=== PATIENT | male | born 2005 | race African-American/Black ===

== ENCOUNTER 2024-01-06 19:48 | Inpatient (IN) ==
--- OUTSIDE RECORDS SUMMARY | 2024-01-06 19:54 | External Medical Summary | Continuity of Care Document ---
Author Name Unknown Organization [place] [id number] Address [address] [place] [address] [phone] Care Team Providers Care Discharge Planner Name Role Phone Bradley Hunt Primary Care Physician [phone] Encounter [facility] [id number] Date(s): 09/14/23 - 09/14/[address] [facility] 0 [place] [id number] [facility] Medicine [address] [place] [id number] Encounter Diagnosis Acute URI(Discharge Diagnosis) - 09/14/23 Discharge Disposition: Home or Self Care Attending Physician: MD Bay Jesse Allergies, Adverse Reactions, Alerts No Known Medication Allergies Assessment and Plan Extracted from: Title:PSSM - URI Author:MD Flip, Edel Perez ate:09/14/23 1.Acute URI - Given duration of symptoms and failure to respond to allergy regimen will trial azithromycin 5 day course (#6 tablets handed to patient) -For symptomatic mucous clearance, mucinex 12hr provided, 1 tab q12hrs prn mucous, #10 provided f/u PRN. Time: 20mins 5 - pre-visit chart review 15 - visit, inclusive of history, exam, and discussion of assessment/plan 0 - post-visit documentation/orders/coordination of care Medications benzoyl peroxide 10% topical cream Start: 01/29/23 6:56:00 PM EDT, 1 appl, topical, bid, Disp# 30 g, Refills: 3, Pharmacy: [facility] Start Date: 01/29/23 Stop Date: 05/29/23 Status: Ordered Mental Status 09/14/23 Barriers to Learning one year None evide nt Mandatory Health Literacy Documentation Yes Health Literacy Communication Barriers N ever Primary Language Kittitian Problem List Condition Confirmation Course Effective Dates Status Health St atus Informant Left ankle sprain Confirmed Active Diagnosis Diagnosis Type Effective Dates Health Status Clini akbar Service Informant Acute URI Discharge Diagnosis 09/14/23 Non-Specified Vital Signs Most recent to oldest [Reference Range]: 1 Height 177 cm (09/14/23 3:29 PM) Patient Weight 88.6 kg (09/14/23 3:29 PM) Body Mass Index 28.28 kg/m2 (09/14/23 3:29 PM) Temperature [36.5-37.9 DegC] 37.0 DegC (09/14/23 3:29 PM) Heart Rate 72 bpm (09/14/23 3:29 PM) Blood Pressure 104/66mmHg (09/14/23 3:29 PM) Weight Z-Score 1.34 1 (09/14/23 3:29 PM) Weight Percentile 91.00 2 (09/14/23 3:29 PM) Height/Length Z-Score 0.04 3 (09/14/23 3:29 PM) Height New Percentile 51.73 4 (09/14/23 3:29 PM) 1Result Comment: ^~:!ZScore Source -[facility] 2Result Comment: ^~:!Percentile Source -[facility] 3Result Comment: ^~:!ZScore Source -[facility] 4Result Comment: ^~:!Percentile Source -[facility] Social History Social History Type Response Smoking Status Never smoked cigaret juan Sex Male Ortho Outpt Note * MD Flip, Edel E: PERFORM Event Display: Ortho Outpt Note Authored Date: [id number] Chief Complaint cold symptoms for 2 weeks - cough, chest congestion. denies fever / chills. 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 He denies any fevers/chills or other infectious symptoms. He notes it's felt like he's got a lot of mucous in his chest. Worsened since coming back to [place]. Trainers had tried allergy medications without relief. Feels a bit wheezy in his chest. Workouts feel harder and less able to getair. Tried loratidine but no flonase/nasal sprays. Physical Exam Vitals & Measurements T:37.0C HR:72(Monitored) BP:104/66 SpO2:98% HT:177cm WT:88.600kg(Dosing) WT:88.6kg BMI:28.28 GENERAL APPEARANCE: The patient is alert, oriented and in no acute distress. VITALS: As above. HEENT: Head is normocephalic/atraumatic. OP clear with mild postnasal drips. Nares swollen/erythematous. CARDIOVASCULAR: +2 radial pulses. LUNGS: Respirations even and unlabored. Coarse breath sounds without wheezing/crackles EXTREMITIES: No cyanosis, clubbing or edema. NEUROLOGICAL: Grossly non-focal exam. SKIN: Warm and dry without any rash. Assessment/Plan 1.Acute URI - Given duration of symptoms and failure to respond to allergy regimen will trial azithromycin 5 day course (#6 tablets handed to patient) -For symptomatic mucous clearance, mucinex 12hr provided, 1 tab q12hrs prn mucous, #10 provided f/u PRN. Time: 20mins 5 - pre-visit chart review 15 - visit, inclusive of history, exam, and discussion of assessment/plan 0 - post-visit documentation/orders/coordination of care Problem List/Past Medical History Ongoing Left ankle sprain Medications benzoyl peroxide topical(benzoyl peroxide 10% topical cream), 1 appl, topical, bid, 3 refills Allergies No Known Medication Allergies Social History Smoking Status Never smoked cigarettes Recommendations Health Maintenance Pending(in the next year) OverDue Adult Influenza Vaccine due10/14/22and every 1year Due Adult COVID-19 Vaccination due09/14/23Unknown Frequency Adult Social Determinants of Health Screening due09/14/23Unknown Frequency Adult Tdap/Td Vaccine due09/14/23Unknown Frequency Hepatitis C Screening due09/14/23One-time only Satisfied(in the past 1 year) Satisfied Body Mass Index on09/14/23.Satisfied by MATT Oliva Cassidy Electronic Signature on File Electronically Reviewed/Signed by: Edel Castelan MD Author Signature Dt/Tm:09/14/2023 03:46 PM Department of Family Medicine [facility] Patient Care team information Care Team Personnel Name: MD Gilbert, Bradley Torres Position: Physician - Sports Medicine [place] Member Role: Primary Care Provider Address: Address: [address] [place] [address]
--- OUTSIDE RECORDS SUMMARY | 2024-01-06 19:54 | External Medical Summary | Continuity of Care Document ---
Author Name Unknown Organization [place] [id number] Address [address] [place] [address] [phone] Care Team Providers Care Garage Door Service Technician Name Role Phone Bradley Hunt Primary Care Physician [phone] [id number]s): 11/07/23 - 11/07/23 [facility] [address] [id number] [facility] Medicine [address] [place] [id number] Encounter Diagnosis Wrist pain(Discharge Diagnosis) - 11/07/23 Pain in wrist(Discharge Diagnosis) - 11/07/23 Discharge Disposition: Home or Self Care Attending Physician: MD Maldonado Wayne J Referring Physician: MD Maldonado Wayne J Allergies, Adverse Reactions, Alerts No Known Medication Allergies Assessment and Plan Extracted from: Title:Clinical Document Author:MD Maldonado Wayne J Date:11/07/23 OUTPATIENT NOTE Name: ELISA KAUFMAN Patient Number:1 [id number] : 2005 Date of Service: 11/07/2023 4 view x-ray right wrist negative for fracture or instability...ordered and interpreted by me . Medications benzoyl peroxide 10% topical cream Start: 01/29/23 6:56:00 PM EDT, 1 appl, topical, bid, Disp# 30 g, Refills: 3, Pharmacy: [facility] Start Date: 01/29/23 Stop Date: 05/29/23 Status: Ordered Problem List Condition Confirmation Course Effective Dates Status Health St atus Informant Left ankle sprain Confirmed Active Diagnosis Diagnosis Type Effective Dates Health Status Cl inical Service Informant Wrist pain Discharge Diagnosis 11/07/23 Non-Specified Pain in wrist Discharge Diagnosis 11/07/23 Non-Specified Social History Social History Type Response Smoking Status Never smoked cigaret juan Sex Male Sex Representation Male (finding) Outpatient Note * MD Erica, Deepak Olsen: PERFORM Event Display: .Outpt Note Authored Date: [id number] OUTPATIENT NOTE Name: ELISA KAUFMAN Patient Number:1 [id number] : 2005 Date of Service: 11/07/2023 4 view x-ray right wrist negative for fracture or instability...ordered and interpreted by me . Electronic Signature on File Electronically Reviewed/Signed by: Deepak Maldonado MD Author Signature Dt/Tm:11/07/2023 11:51 AM Station Master for Clinical Affairs, [facility] Melissa Professor in Orthopaedics Paleontological Helper, [facility] [place] Patient Care team information Care Team Personnel Name: MD Gilbert, Bradley Torres Position: Physician - Sports Medicine [place] Member Role: Primary Care Provider Address: [address] [place] [address]
--- OUTSIDE RECORDS SUMMARY | 2024-01-06 19:54 | External Medical Summary | Continuity of Care Document ---
Author Name Unknown Organization [place] [id number] Address [address] [place] [address] [id number] Care Team Providers Care Mortgage Loan Funder Name Role Phone Bradley Hunt Primary Care Physician [phone] [id number] Date(s): 11/10/23 - 11/10/[address] [facility] [address] [place] [id number] [facility] Medicine [address] [place] [id number] Encounter Diagnosis Pain in right wrist(Discharge Diagnosis) - 11/10/23 Discharge Disposition: Home or Self Care Attending Physician: MD Maldonado Wayne J Referring Physician: MD Maldonado Wayne J Allergies, Adverse Reactions, Alerts No Known Medication Allergies Assessment and Plan Extracted from: Title:Clinical Document Author:MD Maldonado Wayne J Date:11/10/23 OUTPATIENT NOTE Name: ELISA KAUFMAN Patient Number:1 [id number] : 2005 Date of Service: 11/10/2023 Injured his right wrist doing a clean Olympic lift. This happened several days ago. He had x-rays done about 48 hours ago. They do not reveal any significant lesion. He notes he still has some wrist pain and stiffness. He notes no overt swelling. Denies any previous problems. Denies numbness or tingling. Examination today reveals median radian and ulnar nerves intact symmetric bilaterally to sensation and motor function. Intrinsics work well strength is good. Has some discomfort in the CMC joint and in the radial carpal joint with forced dorsiflexion not so much with plantarflexion. Boateng's test is not remarkably positive. Midcarpal stability is symmetric. EPL FPL intact EDC FTC intact ECRB CR L intact has some tenderness over the dorsal carpus. Has no major discomfort with radial ulnar deviation but feels little stiff. Pronation supination is full. There is no TFCC impingement. FCU is intact and nontender ECU is intact and nontender. X-rays multiple views ordered interpreted by me reveal no obvious fracture to the scaphoid no obvious scapholunate widening with PA paving block cutter view. Assessment right wrist impingement potential posttraumatic ganglion. No obvious signs of scaphoid fracture by x-ray or scapholunate instability. Advised that this would may need to be santa-rayed as these may be delayed in assessment by imaging. Do not see any emergent need for MRI scan at this point. He has no significant swelling. He has excellent range of motion. He is this is little discomfort and stiffness at the extremes. At this point I will place on diclofenac 75 mg p.o. be ID and use a wrist geraldine type splint for protection. Repeat x-ray if needed in the future. Medications benzoyl peroxide 10% topical cream Start: 01/29/23 6:56:00 PM EDT, 1 appl, topical, bid, Disp# 30 g, Refills: 3, Pharmacy: [facility] Start Date: 01/29/23 Stop Date: 05/29/23 Status: Ordered Mental Status 11/10/23 Barriers to Learning one year None evide nt Mandatory Health Literacy Documentation Yes Health Literacy Communication Barriers N ever Primary Language North Korean Problem List Condition Confirmation Course Effective Dates Status Health St atus Informant Wrist pain Confirmed Active Left ankle sprain Confirmed Active Diagnosis Diagnosis Type Effective Dates Health Status Cl inical Service Informant Pain in right wrist Discharge Diagnosis 11/10/23 Social History Social History Type Response Smoking Status Never smoked cigaret juan Sex Male Sex Representation Male (finding) Outpatient Note * MD Erica, Deepak Olsen: PERFORM Event Display: .Outpt Note Authored Date: [id number] OUTPATIENT NOTE Name: ELISA KAUFMAN Patient Number:1 [id number] : 2005 Date of Service: 11/10/2023 Injured his right wrist doing a clean Olympic lift. This happened several days ago. He had x-rays done about 48 hours ago. They do not reveal any significant lesion. He notes he still has some wrist pain and stiffness. He notes no overt swelling. Denies any previous problems. Denies numbness or tingling. Examination today reveals median radian and ulnar nerves intact symmetric bilaterally to sensation and motor function. Intrinsics work well strength is good. Has some discomfort in the CMC joint and in the radial carpal joint with forced dorsiflexion not somuch with plantarflexion. Boateng's test is not remarkably positive. Midcarpal stability is symmetric. EPL FPL intact EDC FTC intact ECRB CR L intact has some tenderness over the dorsal carpus. Has nomajor discomfort with radial ulnar deviation but feels little stiff. Pronation supination is full. There is no TFCC impingement. FCU is intact and nontender ECU is intact and nontender. X-rays multiple views ordered interpreted by me reveal no obvious fracture to the scaphoid no obvious scapholunate widening with PA paving block cutter view. Assessment right wrist impingement potential posttraumatic ganglion. No obvious signs of scaphoid fracture by x-ray or scapholunate instability. Advised that this would may need to be santa-rayed as these may be delayed in assessment by imaging. Do not see any emergent need for MRI scan at this point. He has no significant swelling. He has excellent range of motion. He is this is little discomfort and stiffness at the extremes. At this point I will place on diclofenac 75 mg p.o. be ID and use a wrist geraldine type splint for protection. Repeat x-ray if needed in the future. Electronic Signature on File Electronically Reviewed/Signed by: Deepak Maldonado MD Author Signature Dt/Tm:11/10/2023 03:38 PM Hospitality Team Member for Clinical Affairs, [facility] Melissa Professor in Orthopaedics Cream Buyer, [facility] Sports Medicine [place] Patient Care team information Care Team Personnel Name: MD Giblert, Bradley Torres Position: Physician - Sports Medicine [place] Member Role: Primary Care Provider Address: [address] [place] [address] [place]
--- NOTE | 2024-01-06 20:02 | Emergency Department Note ---
Impression & Plan Bilateral ankle fractures, Leukocytosis ED Provider Note NAME: ELISA KAUFMAN AGE: 18 SEX: M : 2005 ARRIVES VIA: Walk-In INFORMANT: Patient ED PROVIDER(S): Liam Duque DO CHIEF COMPLAINT: b/l leg pain HPI: Patient is a 18-year-old male who presents to the ER for bilateral leg pain. He was playing the [employer] football game and was hit from the front and the back of the legs and started having severe pain in the bilateral legs. Patient admits to severe pain in bilateral shins. Denies any tingling, numbness, or weakness. Additional history provided by Dr. Paige who notes that he had x-rays performed already and believes that he has fractures of both ankles. He recommended bilateral tib-fib and ankle x-rays in combination with CT of the lower extremities ADDITIONAL HISTORY OBTAINED: Per HPI Chronic Medical/Social Conditions Affecting Care: Per HPI PAST MEDICAL HISTORY:See Below PAST SURGICAL HISTORY:See Below FAMILY HISTORY:See Below SOCIAL HISTORY:See Below HOME MEDICATIONS:See Below ALLERGIES:See Below VITALS:See Below PHYSICAL EXAMINATION: GENERAL: Sitting up in bed, alert, well appearing, well nourished, no distress, non-toxic EYE EXAM: normal conjunctiva. OROPHARYNX: mucous membranes are moist NECK: supple, no nuchal rigidity, no adenopathy, non-tender LUNGS: Clear to auscultation. Normal chest wall mechanics HEART: no murmurs, S1 normal and S2 normal ABDOMEN: abdomen soft, non-tender, normo-active bowel sounds, no masses, no rebound or guarding. UPPER EXTREMITIES: upper extremities are grossly normal. LOWER EXTREMITIES: Splints on bilateral lower extremities. DPs 2 out of 4. Gross station intact. Able to wiggle toes. No pain in the bilateral knees femurs or hips. NEURO EXAM: Normal sensorium, cranial nerves II-XII grossly intact, normal speech, no gross weakness of arms, no gross weakness of legs. 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 IV was established and blood work was obtained. He was referred in by [facility] as described above. He was already splinted. Labs show mild leukocytosis of 12,000. No significant anemia. BMP with creatinine 1.5. LFTs bilirubin was unremarkable. X-rays show bilateral distal fibular fractures. Patient was admitted to [facility] orthopedics for the OR in the morning. Patient was given IV morphine while in the ER. Consults/Care Managements Discussions: Per [facility] Triage Nursing notes reviewed. Limited review of prior medical records performed Vital Signs: reviewed and remarkable for HTN Differential diagnosis: Fracture, subluxation, dislocation, contusion, ligamentous injury, neurovascular, compartment syndrome, rhabdomyolysis, as well as other pathologies. ER treatment provided: See below Diagnostics interpreted by me include EKG and cardiac monitoring as listed below: -Cardiac Monitoring: An order was placed for continuous cardiac monitoring. The monitor shows a rate of 80 with sinus rhythm. -Laboratory studies:Interpreted by me as stated above in MDM and shown below. Imaging studies: Xrays: As interpreted by me: X-ray of the right ankle shows a distal fibular fracture X-ray of the left ankle shows a distal fibular fracture CTs show: CTs of the ankle support bilateral fibular fractures and were obtained per request of [facility] Ortho Procedures:none Critical Care: None Past Med/Surg History Problem List (Updated 01/06/24 @ 23:12 by Liam Duque DO) Leukocytosis (Acute) Bilateral ankle fractures (Acute) Social History Smoking Status: Never smoker Feels Safe at Home: Yes Allergies Allergies Allergy/AdvReac Type Severity Reaction Status Date / Time No Known Allergies Allergy Unverified 01/06/24 21:34 Home Meds Home Medications Medication Instructions Recorded Confirmed No Known Home Medications 01/06/24 01/06/24 Results & Data (ED) Vital Signs Vital Signs - 24 hr 01/06/24 19:50 01/06/24 20:20 01/06/24 20:57 Temperature 36.5 C Temperature Source Temporal Artery Scan Pulse Rate 82 Pulse Rate [Finger] 75 Respiratory Rate 20 16 Respiratory Effort / Characteristics Non-Labored Spontaneous Respiratory Depth Normal Normal Respiratory Pattern Regular Blood Pressure 153/126 H Blood Pressure [Right Arm] 126/70 Blood Pressure Mean 135 Blood Pressure Mean [Right Arm] 88 Blood Pressure Position Sitting Blood Pressure Position [Right Arm] Semi-fowlers Pulse Oximetry 99 97 98 Oxygen Delivery Method Room Air Room Air Room Air Sepsis Recent Fever Within 48 Hours No Sepsis New/Unexplained Change in Mental Status No Sepsis Action Taken by Nursing No Action Required Laboratory Data 01/06/24 20:20 01/06/24 20:20 Lab Results 01/06/24 Range/Units 20:20 WBC 12.04 H (4.8-10.8) K/ul RBC 5.04 (4.70-6.10) M/uL Hgb 15.5 (14.0-18.0) g/dl Hct 44.3 (42.0-52.0) % MCV 87.9 (80.0-100.0) fL MCH 30.8 (25.0-34.0) pg MCHC 35.0 (32.0-36.0) g/dL RDW Std Deviation 39.3 (36.4-46.3) fL RDW Coeff of Mati 12.2 (11.5-14.5) % Plt Count 283 (130-400) K/uL MPV 9.9 (9.4-12.4) fL Immature Gran % (Auto) 0.3 % Neut % (Auto) 80.0 % Lymph % (Auto) 12.2 % [place] % (Auto) 7.2 % Eos % (Auto) 0.0 % Baso % (Auto) 0.3 % Neut # (Auto) 9.62 H (1.40-6.50) K/uL Lymph # (Auto) 1.47 (1.20-3.40) K/uL [place] # (Auto) 0.87 H (0.11-0.59) K/uL Eos # (Auto) 0.00 (0.00-0.50) K/uL Baso # (Auto) 0.04 (0.00-0.20) K/uL Immature Gran # (Auto) 0.04 (0.01-0.20) K/uL Sodium 139 (136-145) mmol/L Potassium 4.0 (3.5-5.1) mmol/L Chloride 102 (98-107) mmol/L Carbon Dioxide 28 (21-32) mmol/L Anion Gap 9 (3-11) BUN 16 (6-23) mg/dl Creatinine 1.51 H (0.6-1.4) mg/dl Est Cr Clr Drug Dosing 91.3 ml/min Est GFR ( Amer) 76.5 ml/min Est GFR (Non-Af Amer) 66.0 ml/min BUN/Creatinine Ratio 10.6 (10-20) Glucose 79 (70-99(Fasting)) mg/dl Calcium 9.8 (8.6-10.3) mg/dl Total Bilirubin 0.6 (0.2-1.0) mg/dl AST 36 (13-39) U/L ALT 27 (7-52) U/L Alkaline Phosphatase 98 (34-104) U/L Total Protein 7.9 (6.0-8.3) gm/dl Albumin 5.0 (3.4-5.0) gm/dl Globulin 2.9 (2.5-4.0) gm/dl Albumin/Globulin Ratio 1.7 (0.9-2) Administered Medications Acetaminophen/Codeine Phosphate (Acetaminophen W/Codeine #3 1 Tab) 1 - 2 tab PO Q4H PRN PRN Reason: Pain Stop: 02/05/24 20:25 Last Admin: 01/06/24 22:31 Dose: 1 tab Documented By: JT Discontinued Medications Morphine Sulfate (Morphine Sulfate 4 Mg/Ml 1 Ml Carp\Vial) 4 mg IV NOW STA Stop: 01/06/24 20:00 Last Admin: 01/06/24 20:21 Dose: 4 mg Documented By: HAROON Ondansetron HCl (Ondansetron Inj 2 Mg/Ml 2 Ml Vial) 4 mg IV NOW STA Stop: 01/06/24 20:00 Last Admin: 01/06/24 20:21 Dose: 4 mg Documented By: HAROON Discharge Plan Visit Data Chief Complaint: Leg Injury/Pain Stated Complaint: 2 FIBILIA FRACTURE ED Provider: Liam Duque Discharge Problem: Bilateral ankle fractures, Leukocytosis Forms Stand Alone Forms: [facility] [employer] Prescriptions Prescriptions: No Action No Known Home Medications Referrals Referrals: PCP,NO [Physician] - Discharge Problem: Bilateral ankle fractures Qualifiers: Encounter type: initial encounter Fracture type: closed Qualified Code(s): S 82.891A - Other fracture of right lower leg, initial encounter for closed fracture; S82.892A - Other fracture of left lower leg, initial encounter for closed fracture Leukocytosis Qualifiers: Leukocytosis type: unspecified Qualified Code(s): D72.829 - Elevated white blood cell count, unspecified
[2024-01-06] MEDS: MoRPHine SULFATE 4 MG/ML 1 ML CARP\\VIAL IV STA (20:21)
[2024-01-06] MEDS: ONDANSETRON INJ 2 MG/ML 2 ML VIAL IV STA (20:21)
--- NOTE | 2024-01-06 20:26 | History & Physical Report ---
Date of Service January 06, 2024 Assessment & Plan (1) Bilateral ankle fractures: Plan Surgical fixation ankles pending x-ray results. Admission and Anticipated Discharge Date Admission Date: 01/06/2024. 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 Cursory x-rays reveal bilateral ankle fractures. Pending CT scan and formal x-rays. Likely make arrangements for ankle fixation both sides if needed based on x-ray findings. Past Med/Surg History Problem List (Updated 01/06/24 @ 20:26 by Deepak Maldonado MD) Bilateral ankle fractures Social History Smoking Status: Never smoker Feels Safe at Home: Yes Physical Exam Chest (Breasts): Additional Comments: Regular rate and rhythm chest clear clear to auscultation Neurologic: Within normal limits Results & Data Results & Data Vital Signs (Past 12 Hours) Vital Signs Temp Pulse Resp BP Pulse Ox O2 Del Method 01/06/24 19:50 36.5 C 82 20 153/126 H 99 Room Air Diagnostic Findings Bilateral ankle fractures CT and x-rays pending.
[2024-01-06 20:40] LABS: Basophils # (auto) 0.04 K/uL (0.00-0.20); Basophils % (auto) 0.3 %; Hematocrit (blood only) 44.3 % (42.0-52.0); Hemoglobin 15.5 g/dl (14.0-18.0); Immature Granulocytes # (auto) 0.04 K/uL (0.01-0.20); Immature Granulocytes % (auto) 0.3 %; Lymphocytes # (auto) 1.47 K/uL (1.20-3.40); Lymphocytes % (auto) 12.2 %; Mean Corpuscular Hemoglobin 30.8 pg (25.0-34.0); Mean Corpuscular Volume 87.9 fL (80.0-100.0); Mean Platelet Volume 9.9 fL (9.4-12.4); Monocytes # (auto) 0.87 K/uL (0.11-0.59); Monocytes % (auto) 7.2 %; Neutrophils # (auto) 9.62 K/uL (1.40-6.50); Platelet Count 283 K/uL (130-400); RDW Coefficient of Variation 12.2 % (11.5-14.5); RDW Standard Deviation 39.3 fL (36.4-46.3); Red Blood Count 5.04 M/uL (4.70-6.10); White Blood Count 12.04 K/ul (4.8-10.8)
[2024-01-06 20:51] LABS: Albumin Globulin Ratio 1.7 (0.9-2); BUN Creatinine Ratio 10.6 (10-20); Bilirubin,Total 0.6 mg/dl (0.2-1.0); Calcium 9.8 mg/dl (8.6-10.3); Creatinine Clr Calc Pharmacy 91.3 ml/min; Est GFR (African American) 76.5 ml/min; Globulin 2.9 gm/dl (2.5-4.0); Total Protein 7.9 gm/dl (6.0-8.3)
[2024-01-06] MEDS: ACETAMINOPHEN W/CODEINE #3 1 TAB PO PRN (22:31)
[2024-01-06] MEDS: D5W AND 1/2NSS 1,000 ML IV SCH (23:30)
--- NOTE | 2024-01-07 00:45 | CT Scan Report ---
Exam(s): CT EXTREMITY LEFT LOWER Without Contrast EXAM: CT Left Lower Extremity Without Intravenous Contrast CLINICAL HISTORY: Reason for exam: per ortho. TECHNIQUE: Axial computed tomography images of the left lower extremity without intravenous contrast. CTDI is 24.67 mGy and DLP is 1225.69 mGy-cm. Automated exposure control was utilized for the study. A dose lowering technique was utilized adhering to the principles of ALARA. COMPARISON: X-ray also today. FINDINGS: Bones/joints: Oblique fracture of the left distal fibula, Cody B. Small densities along the posterior distal tibia may reflect posterior malleolar avulsion fractures, age indeterminate. Faint densities inferior to the medial malleolus may reflect avulsion fractures, age indeterminate. Heterotopic ossification along the medial distal tibia/ossification of the interosseous membrane. Few gas bubbles medial to the proximal portion of the distal fibular fracture. Small ankle joint effusion. No dislocation. Soft tissues: Diffuse ankle soft tissue swelling. IMPRESSION: 1. Oblique fracture of the left distal fibula, Cody B. Small densities near the posterior and medial malleoli likely reflect avulsion fractures, age indeterminate. Diffuse ankle soft tissue swelling. Findings may represent Cody B stage 4 injury. 2. Few gas bubbles medial to the proximal portion of the distal fibular fracture. Correlate for possible open fracture. 3. Heterotopic ossification along the medial distal tibia/ossification of the interosseous membrane. Electronically signed by: Sai Willis M.D. 01/07/24 00:44 AM
--- NOTE | 2024-01-07 01:03 | CT Scan Report ---
Exam(s): CT EXTREMITY RIGHT LOWER Without Contrast EXAM: CT Right Lower Extremity Without Intravenous Contrast CLINICAL HISTORY: Reason for exam: per ortho. TECHNIQUE: Axial computed tomography images of the right lower extremity without intravenous contrast. CTDI is 24.67 mGy and DLP is 1225.69 mGy-cm. Automated exposure control was utilized for the study. A dose lowering technique was utilized adhering to the principles of ALARA. COMPARISON: X-rays today FINDINGS: Bones/joints: Oblique fracture of the distal fibula, Cody B. Fracture of the posterior malleolus. Query small avulsion fracture medially and mild widening of the medial clear space. No dislocation. Os trigonum. Soft tissues: Diffuse ankle soft tissue swelling. IMPRESSION: Oblique fracture of the distal fibula and posterior malleolus. Likely avulsion fracture of the medial malleolus. May represent Cody B stage 4 injury. Electronically signed by: Sai Willis M.D. 01/07/24 01:02 AM
--- NOTE | 2024-01-07 07:18 | Orthopedic Progress Note ---
Date of Service January 07, 2024 Assessment & Plan Admission and Anticipated Discharge Date Admission Date: January 06, 2024 Orthopedic Progress Note awaiting surgery/ neurovascular exam wnl. keep NPO
[2024-01-07] MEDS ORDERED: ONDANSETRON INJ 2 MG/ML 2 ML VIAL ONE (08:08)
[2024-01-07] MEDS ORDERED: fentaNYL citrate PF 100 MCG/2 ML VIAL ONE ×3 (08:08→11:42)
[2024-01-07] MEDS ORDERED: ROCURONIUM BROMIDE 10 MG/ML 5 ML VIAL IV ONE (08:08)
[2024-01-07] MEDS ORDERED: PROPOFOL IV EMULSION 10 MG/ML 20 ML VIAL IV ONE (08:08)
[2024-01-07] MEDS ORDERED: DEXAMETHASONE SOD INJ 4 MG/ML VIAL ONE (08:08)
[2024-01-07] MEDS ORDERED: MIDAZOLAM HCL 1 MG/ML 2ML VIAL ONE (08:08)
[2024-01-07] MEDS ORDERED: KETAMINE HCL 10MG/ML SYR ONE (08:09)
[2024-01-07] MEDS ORDERED: SUGAMMADEX SODIUM 200 MG/2 ML VIAL IV ONE (08:09)
[2024-01-07] MEDS ORDERED: HYDROmorphone INJ 2 MG/ML SYR/VIAL ONE (08:09)
--- NOTE | 2024-01-07 08:29 | XRay Report ---
XR ankle LT min 3V routine CLINICAL HISTORY: Bilateral ankle pain following injury. COMPARISON: Left ankle radiographs November 28, 2022. FINDINGS: Medial ankle mortise widening is noted. There is an acute oblique nondisplaced distal left fibular fracture which extends from the level of the tibial plafond 9 cm proximally. There is no acu te left tibial fracture. There is ankle soft tissue swelling. IMPRESSION: 1. Acute oblique nondisplaced distal left fibular fracture, as described above. 2. Medial ankle mortise widening. 3. Left ankle soft tissue swelling. ACT 112: Negative or not required by law. Electronically signed by: Carlos Booth M.D. 01/07/2024 8:28 AM
--- NOTE | 2024-01-07 08:29 | XRay Report ---
XR tibia fibula LT 2V CLINICAL HISTORY: Bilateral lower leg pain following injury. COMPARISON: Left ankle radiographs November 28, 2022. FINDINGS: There is no proximal left tibial or fibular fracture. There is an acute oblique nondisplac ed distal left fibular fracture which extends from the level of the tibial plafond 9 cm proximally. T here is mild medial ankle mortise widening. There is no distal left tibial fracture. Overlying cast. IMPRESSION: 1. Acute oblique nondisplaced distal left fibular fracture, as described above. 2. No left tibial fracture. 3. Mild medial ankle mortise widening. ACT 112: Negative or not required by law. Electronically signed by: Carlos Booth M.D. 01/07/2024 8:26 AM
--- NOTE | 2024-01-07 08:34 | XRay Report ---
XR tibia fibula RT 2V CLINICAL HISTORY: Bilateral leg pain following injury. COMPARISON: None FINDINGS: There is an acute oblique nondisplaced distal right fibular fracture which extends from th e level of the tibial plafond 4 cm proximally. There is mild medial ankle mortise widening. There is a subtle acute nondisplaced fracture of the posterior distal right tibia. No proximal right tibial or fibular fracture is present. Ankle soft tissue swelling is present. There is an overlying cast. IMPRESSION: 1. Acute oblique nondisplaced distal right fibular fracture. 2. Acute nondisplaced fracture of the distal posterior right tibia. 3. Mild medial ankle mortise widening. 4. Ankle soft tissue swelling. ACT 112: Negative or not required by law. Electronically signed by: Carlos Booth M.D. 01/07/2024 8:32 AM
--- NOTE | 2024-01-07 08:39 | XRay Report ---
XR ankle RT min 3V routine CLINICAL HISTORY: Right ankle pain following injury. COMPARISON: None FINDINGS: There is an overlying cast. An acute oblique nondisplaced distal right fibular fracture ex tends from the level of the tibiotalar joint 3 cm proximally. There is a subtle acute nondisplaced fr acture of the distal posterior right tibia. Medial ankle mortise widening is present. IMPRESSION: 1. Acute oblique nondisplaced distal right fibular fracture. 2. Acute nondisplaced fracture the posterior distal right tibia. 3. Medial ankle mortise widening. 4. Right ankle soft tissue swelling. ACT 112: Negative or not required by law. Electronically signed by: Carlos Booth M.D. 01/07/2024 8:38 AM
--- NOTE | 2024-01-07 09:01 | Anesthesiology Consultation ---
Date of Service January 07, 2024 Assessment & Plan Chart Review Chart Review: Acceptable Risk for Surgery and Patient NOT seen in Pre Admission Testing Consults Requested none ASA ASA1 Proposed Anesthesia Anesthesia Type: General Regional Regional Laterality: Left Site: Popliteal Risk / Benefits Reviewed With: PT / POA / Parent / Guardian, Accepts Plan and Informed Consent Obtained History Surgery Operation Date: 01/07/24 10:00 Proposed Procedures p Open Reduction Internal Fixation Ankle, syndesmosis fixation with Tightrope, deltoid ligament repair(Bilateral) - Deepak Maldonado MD Height/Weight Height: 5 ft 11 in Weight: 92.1 kg Allergies Allergy/AdvReac Type Severity Reaction Status Date / Time No Known Allergies Allergy Unverified 01/06/24 21:34 Medications Home Medications Medication Instructions Recorded Confirmed Last Taken No Known Home Medications 01/06/24 01/06/24 Unknown Active Medications Generic Name Dose Route Start Last Admin Trade Name Freq PRN Reason Stop Dose Admin Acetaminophen/Codeine Phosphate 1 - 2 tab 01/06/24 20:26 01/07/24 04:45 Acetaminophen W/Codeine #3 1 Tab PO 02/05/24 20:25 2 tab Q4H PRN Administration Pain Dextrose/Sodium Chloride 1,000 mls @ 15 mls/hr 01/06/24 21:00 01/07/24 08:36 D5w And 1/2nss IV 02/05/24 20:59 0 mls/hr .Q24H EULALIO Infusion NPO Date Last Intake of Fluids: 01/07/24 Time Last Intake of Fluids: 02:30 Date Last Intake of Solids: 01/06/24 Time Last Intake of Solids: 22:30 Past Medical History increased CR to 1.5 Exercise / Class Metabolic Activity 1 > 8 Run/Swim/Ski/Tennis Past Anesthesia History No Hx of Anesthesia Complications and No Family Hx of Anesthesia Complications History of PONV No Hx of PONV and No Hx of Motion Sickness Social History Smoking Status: Never smoker Hx Alcohol Use: No Hx Substance Use: No Physical Exam Vital Signs Last Vital Signs Temp 36.8 C 01/07/24 07:47 Pulse 57 L 01/07/24 07:47 Resp 18 01/07/24 07:47 BP 147/76 H 01/07/24 07:47 Pulse Ox 96 01/07/24 07:47 O2 Del Method Room Air 01/07/24 07:47 Constitutional no acute distress ENMT Mouth: no TMJ abnormality and no dentition abnormality Thyromental Distance: > or= 3.5 Finger Breadths Mallampati Class: II Neck normal visual inspection and trachea midline; neck extension not limited Respiratory normal respiratory effort Auscultation: lungs clear to auscultation bilaterally Cardiovascular Rate/Rhythm: regular rate and regular rhythm Heart Sounds: no murmur Vessels: no carotid bruit Musculoskeletal Spine: normal cervical ROM and no pain with cervical ROM Extremities: + extremities abnormal to inspection and full ROM of extremities Neurologic moves all extremities Motor/Sensory: no sensory deficit Psychiatric Orientation: alert and oriented x 3 Testing Laboratory Results 01/06/24 20:20 01/06/24 20:20
--- NOTE | 2024-01-07 09:17 | History & Physical Bridge Note ---
Date of Service January 07, 2024 History & Physical Bridge Note I have examined the patient, reviewed the History & Physical and in the interval since the performance of the History & Physical I have noted the following changes of clinical significance: no changes noted
[2024-01-07] MEDS ORDERED: EPINEPHrine INJ 1 MG/ML AMP ONE (09:20)
[2024-01-07] MEDS ORDERED: ROPIVACAINE 0.5% 5 MG/ML 30 ML VIAL ONE (09:20)
[2024-01-07] MEDS ORDERED: ceFAZolin 330 MG/ML 1 GM VIAL ONE ×2 (10:10→12:49)
[2024-01-07] MEDS: ceFAZolin 2000MG 2,000 MG/15 ML SYR IV SCH (10:11)
[2024-01-07] MEDS ORDERED: GLYCOPYRROLATE 0.2 MG/ML VIAL ONE (10:18)
[2024-01-07] MEDS ORDERED: HYDROmorphone INJ 1 MG/ML SYRINGE IV PRN (12:28)
[2024-01-07] MEDS ORDERED: PROMETHAZINE HCL 6.25 MG in SODIUM CHLORIDE 0.9% 50 ML IV PRN (12:28)
[2024-01-07] MEDS ORDERED: NALOXONE HCL 0.4 MG/1 ML VIAL/CARP IV PRN (12:28)
[2024-01-07] MEDS ORDERED: ONDANSETRON INJ 2 MG/ML 2 ML VIAL IV PRN (12:28)
[2024-01-07] MEDS ORDERED: ATROPINE SULFATE 0.1 MG/ML 10ML SYR IV PRN (12:28)
[2024-01-07] MEDS ORDERED: fentaNYL citrate PF 100 MCG/2 ML VIAL IV PRN (12:28)
[2024-01-07] MEDS ORDERED: FLUMAZENIL 0.1 MG/1 ML 10 ML VIAL IV PRN (12:28)
[2024-01-07] MEDS ORDERED: ePHEDrine sulfate 50 MG/ML AMP IV PRN (12:28)
[2024-01-07] MEDS: ceFAZolin 1000MG 1,000 MG/7.5 ML SYR IV ONE (12:50)
--- NOTE | 2024-01-07 13:35 | Operative Report ---
Post Operative Report Pre & Post Diagnosis Operation Date: 01/07/24 10:00 Pre-Op Diagnosis: Bilateral ankle fractures Post-Op Diagnosis: Bilateral ankle fractures I identified the patient and participated in the time-out.: Yes Procedure Operation Date: 01/07/24 10:00 Actual Procedures p Bilateral Open Reduction Internal Fixation Ankle, Syndesmosis Fixation with Tightrope, Deltoid Ligament Repair(Bilateral) - Deepak Maldonado MD Surgeon Deepak Maldonado MD Ladle Handler Julian Ledesma DO Estimated Blood Loss 40 Findings Consistent with Post-Op Diagnosis Specimens None Description of Procedure The patient was brought to the operative suite underwent general anesthesia. Bilateral lower extremities were prepped and draped in usual sterile fashion. Surgical timeout was performed. Patient underwent a left ankle open reduction internal fixation of the lateral malleolus fracture with syndesmotic fixation and deltoid ligament repair. Patient then underwent right ankle open reduction internal fixation of the lateral malleolus fracture with syndesmotic fixation and deltoid ligament repair. I was present and assisted with limb positioning, soft tissue retraction, hardware placement, wound closure, postoperative dressing and splint placement bilaterally. Please see Dr. Maldonado's operative report for full details. The patient was awakened and taken to the recovery room in stable condition. I attest to the content of the Intraoperative Record and any orders documented therein. Any exceptions are noted below.
--- NOTE | 2024-01-07 13:45 | Post Operative Brief Note ---
Immediate Post Op Note Date of Surgery January 07, 2024 Pre & Post Diagnosis Operation Date: 01/07/24 10:00 Pre-Op Diagnosis: Bilateral ankle fractures with syndesmosis disruption and deltoid ligament rupture Post-Op Diagnosis: Bilateral ankle fractures with syndesmosis disruption and deltoid ligament rupture I identified the patient and participated in the time-out.: Yes Procedure Operation Date: 01/07/24 10:00 Actual Procedures p Bilateral Open Reduction Internal Fixation Ankle, Syndesmosis Fixation with Tightrope, Deltoid Ligament Repair(Bilateral) - Deepak Maldonado MD Surgeon Deepak Maldonado MD Wing Mailer Machine Operator Julian Ledesma DO Estimated Blood Loss 40 Findings Consistent with Post-Op Diagnosis Severe instability bilateral ankles with distal fibular fractures right side being more Cody B to the proximal Cody a complete disruption of syndesmosis bilaterally complete deltoid ligament ruptures bilaterally. Fluids See anesthesia record Complications None
--- NOTE | 2024-01-07 13:50 | Fluoroscopy Report ---
FL ankle LT 2V CLINICAL HISTORY: Left ankle open reduction and internal fixation. COMPARISON STUDY: Left ankle radiographs and CT of the left tibia and fibula January 06, 2024. FLUOROSCOPY TIME: 1 minute and 21 seconds. ka,r: 3.34 mGy FLUOROSCOPIC IMAGES: 3 FINDINGS: Fluoroscopy was provided during open reduction and internal fixation of the left ankle. Carolyn te and screw fixation of the fibular fracture is noted with syndesmotic repair. Hardware is intact. A lignment appears anatomic. No unexpected radiopaque foreign bodies. IMPRESSION: Fluoroscopy provided during open reduction and internal fixation of the left ankle fract ure. ACT 112: Negative or not required by law. Electronically signed by: Carlos Booth M.D. 01/07/2024 1:49 PM
--- NOTE | 2024-01-07 13:52 | Operative Report ---
Post Operative Report Pre & Post Diagnosis Operation Date: 01/07/24 10:00 Pre-Op Diagnosis: Bilateral ankle fractures Post-Op Diagnosis: Bilateral distal fibula ankle fractures with syndesmosis ruptures and deltoid ligament ruptures I identified the patient and participated in the time-out.: Yes Procedure Operation Date: 01/07/24 10:00 Actual Procedures p Bilateral Open Reduction Internal Fixation Ankle, Syndesmosis Fixation with Tightrope, Deltoid Ligament Repair(Bilateral) - Deepak Maldonado MD Surgeon Deepak Maldonado MD Health Education Teacher Julian Ledesma DO Estimated Blood Loss 40 Findings Consistent with Post-Op Diagnosis Severe bilateral syndesmosis disruption deltoid ligament disruption and distal fibular fractures right side more distal than left side. Fluids See anesthesia report Specimens None Drains None none Complications None Indications Severe instability with fracture bilateral ankles Description of Procedure After the patient was appropriate identified site verified consent verified antibiotics confirmed as being given both lower extremities were prepped and draped usual routine fashion. Due to the more complex fracture pattern of the left side it was deemed appropriate to start there first. Tourniquet was inflated to 275 mmHg after exsanguination limb with a rubber stick branch for total of roughly 65 to 70 minutes. A lateral incision was made over the distal fibula appropriate with the length of the exposure needed. Full-thickness flaps raised. Fracture hematoma was evacuated. Fracture was quite long. It was curetted clean and then reduced with lion-jaw clamps. 2 interfrag screws were then placed with lag technique. Excellent fixation was obtained. The one third tubular plate was then placed along the lateral side of the fibula and then secured with multiple screws. 2 areas for this tight rope by Arthrex were then placed this is for the syndesmosis. A large reduction clamp was used to reduce the syndesmosis appropriately and then the artery Arthrex tight ropes were then placed 1 distal 1 proximal and around the syndesmosis. Excellent fixation was obtained. Once this was was completed medial incision was made over the deltoid ligament over it where complete rupture was identified and an Arthrex anchor was then placed for the deltoid ligament repair it was a fiber tack suture anchor double loaded. Excellent deltoid repair was obtained. These wounds were irrigated multiple times during the procedure and closed in layers using 2-0 Guillaume ryl and stainless steel clips. Summary of implants on the left where syndesmosis tight rope Arthrex times 2F fiber tack DX suture anchor for the deltoid ligament repair x 1 set these 3.5 lag screws 20 mm x 210 hole one third tubular plate 3.5 cortical screws 14 mm x 312 mm x 1 cancellous 18 mm x 2 and 60 mm x 1. Once this was all irrigated and closed we went to the other side. Timeout was performed once again and it was identified. Distal fibular incision was then made. Appropriate exposure obtained. Reduction was then carried out after the fracture was curetted and the lag screw was placed. It was 30 mm in length with an excellent purchase. A 7 hole LCP fibular plate was then placed it was cut slightly contoured. Cortical screws were placed 16 mm x 3 10 mm x 214 mm x 1 a locking screws were placed a 16-14 and a 12. On that side too tight rope implants were utilized once the syndesmosis again was reduced with a large clamp and then additionally the deltoid ligament was repaired through the medial incision with 2 anchors on the side since there was more disruption and deltoid ligament tear. Excellent repair was obtained there as well. Both these wounds were then copiously irrigated. They were then closed with 2-0 Vicryl and standstill clips. Multiple plain fluoroscopy and multiple images with stress view revealed excellent syndesmosis stabilization and symmetric mortise clear spaces. Once this was all done again the wounds were closed with 2-0 Vicryl standstill clips. Appropriate dressings were applied appropriate splints were applied. Patient was then transferred recovery in satisfactory descending tolerated the procedure well. Summary of implants on the right side were as noted above. DVT prophylaxis to be initiated tomorrow with Ramírez. His aunt w as contacted per his request postop. 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 This was based on his request. I attest to the content of the Intraoperative Record and any orders documented therein. Any exceptions are noted below.
--- NOTE | 2024-01-07 13:53 | Orthopedic Progress Note ---
Date of Service January 07, 2024 Assessment & Plan Admission and Anticipated Discharge Date Admission Date: January 06, 2024 Orthopedic Progress Note Patient comfortable postop his blocks are working he has appropriate numbness and tingling and decreased motor function bilateral lower extremities. Wound dressing is clean dry and intact. Intraoperative fluoroscopy's look good. At this point time continue with appropriate nonweightbearing. Contacted his aunt initiated the need for manager social and placement. To be nonweightbearing for 8 weeks. The fact that his bilateral lower extremities means he will need to live in a cart or a motorized scooter. Will need to learn how to transfer will likely need an inpatient stent at [facility].
--- NOTE | 2024-01-07 13:55 | Fluoroscopy Report ---
FL ankle RT 2V CLINICAL HISTORY: Right ankle open reduction and internal fixation. COMPARISON STUDY: Right radiographs and CT of the right tibia and fibula January 06, 2024. FLUOROSCOPY TIME: 1 minute and 18 seconds. Ka, r: 3.79 mGy FLUOROSCOPIC IMAGES: 6 FINDINGS: Fluoroscopy was provided during open reduction and internal fixation of the right ankle wit h plate and screw fixation of the right fibular fracture. Alignment appears anatomic. Syndesmotic rep air is noted. No unexpected radiopaque foreign bodies. IMPRESSION: Fluoroscopy provided during open reduction and internal fixation of the right ankle yani lyn. ACT 112: Negative or not required by law. Electronically signed by: Carlos Booth M.D. 01/07/2024 1:53 PM
[2024-01-07] MEDS ORDERED: POLYETHYLENE (MIRALAX) 17 GM PACK PO PRN (14:08)
[2024-01-07] MEDS: cefTRIAXone SODIUM 2,000 MG/50 ML BAG IV ONE (14:12)
--- NOTE | 2024-01-07 14:33 | Anesthesiology Progress Note ---
Date of Service January 07, 2024 Anesthesia Post Procedure Vital Signs Vital Signs: Temp Pulse Pulse Pulse Resp BP BP 01/07/24 14:28 64 18 149/91 H 01/07/24 14:15 36.8 C 58 L 16 156/88 H 01/07/24 14:05 36.4 C L 62 14 148/89 H 01/07/24 13:55 72 16 155/94 H 01/07/24 13:45 79 18 141/88 H 01/07/24 13:35 36.1 C L 81 14 149/101 H 01/07/24 07:47 36.8 C 57 L 18 147/76 H 01/07/24 04:43 36.8 C 59 L 14 143/79 H 01/07/24 03:34 57 L 20 136/77 01/06/24 23:35 71 18 144/63 H 01/06/24 20:57 75 16 126/70 01/06/24 20:20 01/06/24 19:50 36.5 C 82 20 153/126 H Pulse Ox O2 Del Method O2 Flow Rate 01/07/24 14:28 96 Room Air 01/07/24 14:15 98 Room Air 01/07/24 14:05 100 Room Air 01/07/24 13:55 100 Oxymask 2 01/07/24 13:45 100 Oxymask 4 01/07/24 13:35 100 Oxymask 6 01/07/24 07:47 96 Room Air 01/07/24 04:43 96 Room Air 01/07/24 03:34 98 Room Air 01/06/24 23:35 97 Room Air 01/06/24 20:57 98 Room Air 01/06/24 20:20 97 Room Air 01/06/24 19:50 99 Room Air Pain Intensity Bilateral Ankle: Pain Intensity: 7 Transfer of Care Handoff Completed per policy Notes Mental Status: alert / awake / arousable Patient Amnestic to Procedure: Yes Nausea / Vomiting: adequately controlled Pain: adequately controlled Airway Patency, RR, SpO2: stable & adequate BP & HR: stable & adequate Hydration State: stable & adequate Anesthetic Complications: no major complications apparent
[2024-01-07] MEDS: oxyCODONE/ACETAMINOPHEN 5mg/325mg TAB PO PRN (16:44)
--- NOTE | 2024-01-07 18:56 | Orthopedic Progress Note ---
Date of Service January 07, 2024 Assessment & Plan Admission and Anticipated Discharge Date Admission Date: January 06, 2024 Orthopedic Progress Note Postop check status post ORIF bilateral ankle fracture dislocations. He is resting comfortably. The popliteal blocks are working well. He has minimal discomfort. He still has significant numbness and lack of motor function in both the feet the right is waking up slightly more quickly than the left based on what he states. Both toes and feet are warm and pink. The dressings do not feel tight. There is no swelling or drainage through the dressing. He can do straight leg raises bilaterally. Assessment overall doing reasonly well continue with observation keep strict nonweightbearing we will initiate his oral antibiotics tomorrow with azithromy herman 500 mg daily. Will have him be seen by PT OT and case management tomorrow for potential placement into a rehab facility to get trained how to transfer and move without putting weight into his legs. Initiated all of the changes for campus living with forms filled out for this as well.Initiate anticoagulation tomorrow.
[2024-01-07] MEDS: KETOROLAC 30 MG/ML VIAL IV PRN (19:47)
[2024-01-07] MEDS: DOCUSATE SODIUM 100 MG CAP PO SCH (21:34)
[2024-01-07] MEDS: ONDANSETRON INJ 2 MG/ML 2 ML VIAL IV PRN (21:34)
[2024-01-08] MEDS: ACETAMINOPHEN 500 MG TAB PO PRN (06:31)
--- NOTE | 2024-01-08 06:43 | Orthopedic Progress Note ---
Date of Service January 08, 2024 Assessment & Plan Admission and Anticipated Discharge Date Admission Date: January 06, 2024 Orthopedic Progress Note Postop day #1 status post open reduction internal fixation of bilateral ankle fracture dislocations. He denies chest pain shortness of breath fever chills nausea vomiting or headache. His blocks are wearing off. He notes that he can feel his toes. He can actively dorsi and plantarflex his toes. He does not have any significant discomfort with passive stretching. Splints are clean and dry. He can do straight leg raises. Abdomen chest without any major issues. Vital signs are stable he is afebrile. Retropopliteal spaces and thighs without any significant discomfort distal CMS returning from block active toe flexion and extension. Toes pink and warm. Assessment overall doing well plan is to institute his anticoagulation today instituted his oral antibiotic prophylaxis today evaluations by PT OT and case management today make arrangements for transfer to rehab facility.
[2024-01-08] MEDS: AZITHROMYCIN 250 MG TAB PO SCH (08:06)
[2024-01-08] MEDS: APIXABAN 2.5 MG TAB PO SCH (08:06)
--- NOTE | 2024-01-08 09:43 | Orthopedic Progress Note ---
Date of Service January 08, 2024 Assessment & Plan (1) Bilateral ankle fractures: Plan: POD 1 S/P Bilateral Open Reduction Internal Fixation Ankle, Syndesmosis Fixation with Caleb, Deltoid Ligament Repair with Dr Maldonado Continue with pain control as prescribed with tylenol3, ketorolac, percocet PRN Ice and elevate Leave splints in tact, clean and dry PT - non weight bearing BL extremities CM consulted for rehab needs Eliquis 2.5 BID for DVT prophylaxis Continue 2g ceftriaxone IV x 24 hours and Azithromycin 500mg qAM x 7 days (last day 01/14) Admission and Anticipated Discharge Date Admission Date: January 06, 2024 Subjective Pt seen and examined bedside. He reports that he is overall doing okay. His block is wearing off. He has some tingling in his left foot still. Denies any calf pain or knee pain. Denies F/C, CP, SOB. Review of Systems Review of Systems: Per HPI Physical Exam Physical Exam: General: Pt is laying in bed AA&O. He has bilateral short leg splints secure with coban. Clean, dry and intact. Propped up with one pillow under each leg. LLE: Splint fitting appropriately. He is able to wiggle all of his toes. He has sensation in tact distally to light touch. Skin is warm normal temperature. RLE: Splint fitting appropriately. He is able to wiggle all of his toes. He has sensation in tact distally to light touch. Skin is warm normal temperature. Results & Data Vital Signs (Past 12 Hours) Vital Signs Temp Pulse Resp BP Pulse Ox O2 Del Method 01/08/24 07:20 36.9 C 57 L 16 165/77 H 98 Room Air 01/08/24 04:41 36.9 C 58 L 16 125/67 98 Room Air 01/08/24 01:45 36.7 C 60 18 138/68 96 Room Air (1) Bilateral ankle fractures Encounter type: initial encounter Fracture type: closed Qualified Code(s): S82.891A - Other fracture of right lower leg, initial encounter for closed fracture; S82.892A - Other fracture of left lower leg, initial encounter for closed fracture
[2024-01-08] MEDS: cefTRIAXone SODIUM 2,000 MG/50 ML BAG IV SCH (11:41)
[2024-01-08] MEDS: HYDROmorphone INJ 1 MG/ML SYRINGE IV STA (16:20)
--- NOTE | 2024-01-08 16:27 | Orthopedic Progress Note ---
Date of Service January 08, 2024 Assessment & Plan Admission and Anticipated Discharge Date Admission Date: January 06, 2024 Orthopedic Progress Note Afternoon rounds checked. Blocks are now worn off he is active extension of toes feels everything well no pain with passive stretch splints are clean and dry. At this point I will adjust his pain medications to place him on Tylenol 1000 mg 8 hours as scheduled [id number] and then Dilaudid 1 mg IV stat now and then 2 mg p.o. every [address] Also place him on a proton pump inhibitor to minimize any risk for ulcer disease. He started his Eliquis today. Discussed with him and with his aunt.
[2024-01-08] MEDS: PANTOprazole 40 MG TAB PO SCH (17:59)
[2024-01-08] MEDS: ACETAMINOPHEN 500 MG TAB PO SCH (17:59)
--- NOTE | 2024-01-08 18:44 | Discharge Summary ---
Date of Service January 08, 2024 Admission HPI Per Admitting Provider Got rolled up on the playing [employer] football sustained bilateral ankle injuries. Cursory x-rays reveal bilateral ankle fractures. Pending CT scan and formal x-rays. Likely make arrangements for ankle fixation both sides if needed based on x-ray findings.Formal x-rays and CT scans revealed significant injury with deltoid ligament rupture syndesmosis rupture and distal fibula fractures left being more extensive than right. Principal Diagnosis Bilateral ankle fracture dislocations Discharge Exam Eyes PERRLA Cardiovascular Regular rate and rhythm Neurologic Within normal limits Discharge Data Allergies Allergy/AdvReac Type Severity Reaction Status Date / Time No Known Allergies Allergy Unverified 01/06/24 21:34 Vaccinations None Consultations 01/06/24 20:07 ED Decision to Admit Stat Physical therapy, Occupational Therapy, case management. Procedures Performed Operation Date: 01/07/24 10:00 Actual Procedures p Bilateral Open Reduction Internal Fixation Ankle, Syndesmosis Fixation with Tightrope, Deltoid Ligament Repair(Bilateral) - Deepak Maldonado MD Ordered Studies 01/06/24 19:51 CT tib/fib LT wo con Stat CT tib/fib RT wo con Stat 01/07/24 FL ankle LT 2V Routine FL ankle RT 2V Routine 01/07/24 09:02 US - OR guided needle placemen Stat Hospital Course (1) Bilateral ankle fractures: Surgical fixation Needs inpatient rehabilitation to ensure safe transfer [facility] and living conditions since he will need to be strict nonweightbearing both lower extremities for 8 weeks. Plan Discharge to [facility] bed available Total Time Total Time Spent Total Time Spent (In Minutes): 10 minutes Discharge Plan Discharge Items Patient Disposition: Transfer Inpatient Rehab Fac Reason For Visit: ANKLE FRACTURES Discharge Diagnosis: Same Condition on Discharge: Good Activity: Per Instructions section Activity Comment: Strict nonweightbearing bilateral lower extremities Lifting: Wait until after follow-up appointment Bathing: Keep incision dry Bathing Comment: Do not get wounds wet Sexual Activity: Wait until after follow-up appointment Exercise/Sports: Wait until after follow-up appointment Driving/Machine Use: No driving x 8 weeks Weightbearing Comment: Strict nonweightbearing both lower extremities Non-emergency contact: Surgeon Call non-emergency contact if: your temperature is above 101.5, your wound has increased redness, your wound has increased drainage and your wound pain has increased Follow-up/Referrals: Deepak Maldonado MD [Primary Care Provider] - 01/22/24 2:45 pm Diet: Regular Addtl Attending Provider Instructions: Orthopedic Discharge Instructions: Non weight bearing bilateral extremities Keep splints in-tact, clean and dry Ice and elevate Eliquis 2.5mg twice a day for DVT prophylaxis (while you are taking Eliquis, do NOT take any NSAIDS such as ibuprofen/motrin/advil/aleve etc because it can further thin your blood) Azithromycin 500mg every morning for 7 days (end on 01/14) Pain control - Percocet 1 tab every 6 hours as needed, as your pain improves you can switch to over the counter Tylenol 1000mg every 8 hours Physical therapy as instructed Needs good bowel regimen Pending Studies at Discharge: No Stand-Alone Forms: My [facility] Skilled Items Patient informed of condition?: Yes DNR: No (Full resuscitation) Discharge Level of Care: Acute rehab Communicable Disease: No Discharge Prognosis: Stable Lines: None Urinary Catheter: No Medications and DC Order Prescriptions: No Action No Known Home Medications Admission Data Admit Date/Time: 01/06/24 20:27 Attending Provider: Deepak Maldonado Admit Provider: Deepak Maldonado Primary Care Provider: Deepak Maldonado Other Providers: Deepak Maldonado; [facility]
[2024-01-08] MEDS: HYDROmorphone HCL 2 MG TAB PO PRN (19:33)
[2024-01-08] MEDS: KETOROLAC 30 MG/ML VIAL IV PRN (20:49)
[2024-01-08] MEDS: HYDROmorphone INJ 0.5 MG/0.5 ML SYR IV PRN (23:47)
[2024-01-09] MEDS: oxyCODONE/ACETAMINOPHEN 5mg/325mg TAB PO PRN (00:49)
--- NOTE | 2024-01-09 06:30 | Orthopedic Progress Note ---
Date of Service January 09, 2024 Assessment & Plan Admission and Anticipated Discharge Date Admission Date: January 06, 2024 Orthopedic Progress Note right dressing feels tight. denies other issue. dressing split re-approximated with julee bandages . nay redress after surgery .pain meds adjusted.
[2024-01-09 07:55] VITALS: BP 168/82; PULSE 64; RESP 14; TEMP 98.8; O2SAT 96
[2024-01-09] MEDS: cefTRIAXone SODIUM 2,000 MG/50 ML BAG IV SCH (08:38)
--- NOTE | 2024-01-09 10:16 | Orthopedic Progress Note ---
Date of Service January 09, 2024 Assessment & Plan Admission and Anticipated Discharge Date Admission Date: January 06, 2024 Orthopedic Progress Note Responded well to the splint loosening on the right lower extremity. He is much more comfortable. Denies chest pain shortness of breath fever chills nausea vomiting or headache.Vital signs are stable he is afebrile. Has good sensation all toes has no pain with passive stretch as initiates active extension and flexion of all toes. He is quite stiff. As would be expected. There is nothing unusual here. The right splint is removed completely and changed everything is clean and dry. New splint applied. Tolerated well. Assessment doing well status post bilateral ankle internal fixation syndesmosis fixation deltoid fixation for ankle fracture dislocations bilaterally. Plan is to continue to work with case management prepare for discharge when bed is available from my perspective he can leave at any time. He is to be discharged on Eliquis 2.5 mg p.o. twice daily for DVT PE prophylaxis he is to be strict nonweightbearing both lower extremities he is to learn how to transfer and toilet appropriately. He is to take azithromycin 500 mg daily for 7 days. Splints are not to be removed. If there is any issues with dressings they should contact me directly. [phone].
== END 2024-01-09 14:00 | DRG 494 ==
LOC: ED 19:48 → 3W 20:27